=== PATIENT | female | born 1945 | race Hispanic/Latino ===

== ENCOUNTER → 2024-09-26 | Outpatient (REF) | payer MEDICARE ==
[~2024-09-26] MED LIST: ADDERALL 30 MG30 MG PO; CYMBALTA30 MG PO; FEOSOL325 MG PO; GABAPENTIN600 MG PO; HYDROCODON-ACE1 EA12 PO; OMEPRAZOLE40 MG PO
[2024-09-26 12:35] LABS: BASOPHILS # (AUTO) 0.1 (0.0-0.1); BASOPHILS % 0.7 % (0.0-1.0); EOSINOPHILS # (AUTO) 0.5 (0.0-0.4); EOSINOPHILS % 5.1 % (0.0-6.0); HEMATOCRIT 36.1 % (34.2-44.1); HEMOGLOBIN 12.1 g/dL (12.0-16.0); LYMPHOCYTES # (AUTO) 3.1 (1.0-3.2); LYMPHOCYTES % 33.6 % (18.0-39.1); MEAN CORPUSCULAR HEMOGLOBIN 32.1 pg (28-32); MEAN CORPUSCULAR HGB CONC 33.5 g/dL (31-35); MEAN CORPUSCULAR VOLUME 95.8 fL (81-99); MONOCYTES # (AUTO) 0.5 (0.2-0.8); MONOCYTES % 5.8 % (4.4-11.3); NEUTROPHILS % 54.5 % (38.7-80.0); PLATELET COUNT 278 x10e3/uL (140-360); RED BLOOD COUNT 3.77 x10e6/uL (3.6-5.1); RED CELL DISTRIBUTION WIDTH 13.6 % (11.7-14.4); WHITE BLOOD COUNT 9.18 x10e3/uL (4.8-10.8)
== END ==
LOC: RAD 08:00 → EDSTATUS 10-01 10:30
PROVIDERS: ATTEND Physical Medicine & Rehabilitation Pain Medicine
DX: Z01.810 Encounter for preprocedural cardiovascular examination (principal); Z01.812 Encounter for preprocedural laboratory examination; M54.16 Radiculopathy, lumbar region; M79.7 Fibromyalgia; Z85.3 Personal history of malignant neoplasm of breast
CPT/HCPCS: 36415; 71046; 85025; 93005